=== PATIENT | female | born 1945 | race Caucasian/White ===

== ENCOUNTER → 2017-01-06 | Outpatient (CLI) | payer MEDICARE ==
[~2017-01-06] MED LIST: ACTOS15 MG PO; ASPIR 8181 MG PO; BRILINTA90 MG PO; IMDUR ER TAB 3030 MG PO; JARDIANCE10 MG PO; LIPITOR TAB 2020 MG PO; LISINOPRIL2.5 MG PO; LOPRESSOR 25 MG25 MG PO; NITROSTAT0.4 MG PO; PLAVIX 75 MG TA75 MG PO; ZANAFLEX 4 MG TA4 MG PO
== END ==
LOC: MAMO 14:00
DX: Z12.31 Encounter for screening mammogram for malignant neoplasm of breast (principal)
CPT/HCPCS: G0202

== ENCOUNTER 2017-01-14 03:29 | Inpatient (IN) | payer MEDICARE ==
[~2017-01-14] VITALS: Ht 157.5 cm; Wt 73.5 kg
[2017-01-14 03:51] LABS: HEMOGLOBIN 16.1 gm/dl (12.3-15.3); RED BLOOD COUNT 5.07 M/UL (4.00-5.10)
[2017-01-14 04:04] LABS: BUN/CREATININE RATIO 24 (0-10)
[2017-01-14] MEDS ORDERED: ZANAFLEX 4 MG TA4 MG PO (06:39)
[2017-04-21] MEDS ORDERED: NITROSTAT0.4 MG PO (05:11)
[2017-04-21] MEDS ORDERED: LIPITOR TAB 2020 MG PO (05:11)
[2017-04-21] MEDS ORDERED: ACTOS15 MG PO (05:11)
[2017-04-21] MEDS ORDERED: LOPRESSOR 25 MG25 MG PO (05:12)
[2017-04-21] MEDS ORDERED: BRILINTA90 MG PO (05:13)
[2017-04-21] MEDS ORDERED: ASPIR 8181 MG PO (05:13)
[2017-04-21] MEDS ORDERED: IMDUR ER TAB 3030 MG PO (17:45)
[2017-04-21] MEDS ORDERED: PLAVIX 75 MG TA75 MG PO (17:46)
[2017-04-21] MEDS ORDERED: LISINOPRIL2.5 MG PO (17:46)
[2017-05-03] MEDS ORDERED: BRILINTA90 MG PO (09:52)
[2017-05-03] MEDS ORDERED: JARDIANCE10 MG PO (09:53)
== END 2017-01-14 17:07 | disposition short-term general hospital (02) | DRG 246 ==
LOC: ER1 03:29 → ZEROF 03:57 → CCU 05:53
PROVIDERS: Emergency Medicine; ADMIT Internal Medicine Cardiovascular Disease
PROC: 027034Z Dilation of Coronary Artery, One Artery with Drug-eluting Intraluminal Device, Percutaneous Approach (ICD-10-PCS; principal; 2017-01-14)
PROC: 4A023N7 Measurement of Cardiac Sampling and Pressure, Left Heart, Percutaneous Approach (ICD-10-PCS; 2017-01-14)
PROC: B2111ZZ Fluoroscopy of Multiple Coronary Arteries using Low Osmolar Contrast (ICD-10-PCS; 2017-01-14)
DX: T82.867A Thrombosis due to cardiac prosthetic devices, implants and grafts, initial encounter (principal); I21.09 ST elevation (STEMI) myocardial infarction involving other coronary artery of anterior wall; Y71.2 Prosthetic and other implants, materials and accessory cardiovascular devices associated with adverse incidents; I25.10 Atherosclerotic heart disease of native coronary artery without angina pectoris; E11.9 Type 2 diabetes mellitus without complications; I10 Essential (primary) hypertension; E78.5 Hyperlipidemia, unspecified; K21.9 Gastro-esophageal reflux disease without esophagitis; Z91.19 Patient's noncompliance with other medical treatment and regimen; E66.9 Obesity, unspecified; Z68.29 Body mass index [BMI] 29.0-29.9, adult; Z85.820 Personal history of malignant melanoma of skin; Z79.899 Other long term (current) drug therapy; Z88.8 Allergy status to other drugs, medicaments and biological substances; Z90.710 Acquired absence of both cervix and uterus; Z90.49 Acquired absence of other specified parts of digestive tract; Z98.890 Other specified postprocedural states; Z80.8 Family history of malignant neoplasm of other organs or systems; Z82.49 Family history of ischemic heart disease and other diseases of the circulatory system; Z83.6 Family history of other diseases of the respiratory system; Z83.3 Family history of diabetes mellitus
CPT/HCPCS: ECHO; 36415; 71010; 80053; 82550; 82553; 82962; 83874; 84132; 84484; 85025; 85347; 93005; 93306; 96374; 96375; 99291; C1725; C1757; C1769; C1874; C1887; C9600; J0461; J0583; J1644; J2405; J3010; J3480; J7030; J7040; Q9965

== ENCOUNTER → 2020-11-29 | Outpatient (CLI) | payer MEDICARE ==
[~2020-11-29] MED LIST changes: +CEFUROXIME500 MG PO; +CLARITIN 10MG T10 MG PO; +PREDNISONE20 MG PO
== END ==
LOC: RAD 15:06
DX: M25.561 Pain in right knee (principal)
CPT/HCPCS: 73562

== ENCOUNTER 2021-09-25 23:50 | Inpatient (IN) | payer MEDICARE ==
[~2021-09-25] VITALS: Ht 154.9 cm; Wt 98.0 kg
[2021-09-26 00:42] LABS: RED BLOOD COUNT 4.35 M/UL (4.00-5.10); WHITE BLOOD COUNT 8.4 K/UL (4.5-11.0)
[2021-09-26] MEDS ORDERED: DONEPEZIL HCL5 MG PO (10:01)
[2021-09-26] MEDS ORDERED: COREG 3.125M3.125 MG PO (10:01)
[2021-09-26] MEDS ORDERED: ISOSORBIDE MONO60 MG PO (10:02)
[2021-09-26] MEDS ORDERED: VALSARTAN80 MG PO (10:02)
[2021-09-26] MEDS ORDERED: MULTIVITAMIN1 EACH PO (10:04)
[2021-09-26] MEDS ORDERED: NOVOLOG 10100 UNITS1 INJ (10:05)
[2021-09-27 08:44] LABS: HEMOGLOBIN 12.8 gm/dl (12.3-15.3); RED BLOOD COUNT 4.04 M/UL (4.00-5.10); WHITE BLOOD COUNT 6.5 K/UL (4.5-11.0)
[2021-09-27 09:14] LABS: BUN/CREATININE RATIO 44 (0-10)
[2021-09-28 06:02] LABS: ACINETOBACTER BAUMANNII Not Detected (Negative); CANDIDA ALBICANS Not Detected (Negative); CANDIDA KRUSEI Not Detected (Negative); CANDIDA TROPICALIS Not Detected (Negative); ENTEROCOCCUS Not Detected (Negative); ESCHERICHIA COLI Not Detected (Negative); HAEMOPHILUS INFLUENZAE Not Detected (Negative); KLEBSIELLA OXYTOCA Not Detected (Negative); KLEBSIELLA PNEUMONIAE Not Detected (Negative); KPC-CARBAPENEM-RESISTANCE GENE Not Detected (Negative); PROTEUS Not Detected (Negative); PSEUDOMONAS AERUGINOSA Not Detected (Negative); SERRATIA MARCESANS Not Detected (Negative); STAPHYLOCOCCUS Not Detected (Negative); STAPHYLOCOCCUS AUREUS Not Detected (Negative); STREP AGALACTIAE (GROUP B) Not Detected (Negative); STREP PYOGENES (GROUP A) Not Detected (Negative); STREPTOCOCCUS Not Detected (Negative); mecA (METHICILLIN RESIST GENE Not Detected (Negative); vanA/B (VANCOMYCIN RESIST GENE Not Detected (Negative)
[2021-09-28 09:10] LABS: HEMOGLOBIN 12.1 gm/dl (12.3-15.3); RED BLOOD COUNT 3.78 M/UL (4.00-5.10)
[2021-09-28 09:12] LABS: WHITE BLOOD COUNT 13.2 K/UL (4.5-11.0)
[2021-09-29 08:01] LABS: HEMOGLOBIN 12.4 gm/dl (12.3-15.3); RED BLOOD COUNT 3.95 M/UL (4.00-5.10)
--- NOTE | 2021-09-29 11:17 | NUR ---
ATTEMPTED TO CALL REPROT TO ICU AT THIS TIME TO MOVE PATIENT. ICU NURSE STATES THAT I WILL NEED TO CALL BACK THAT THE NURSE IS IN ANOTHER ROOM AND THAT THE PULMONOLIGIST STATED THAT THE PATIENT IS STABLE ENOUGH TO WAIT TRANSFER. [facility]RIC[facility]PRENTICE MADE AWARE.
--- NOTE | 2021-09-29 12:26 | NUR ---
REPORT CALLED TO RUBEN ROMAN IN THE ICU AT THIS TIME.
[2021-09-30 04:58] LABS: HEMOGLOBIN 11.9 gm/dl (12.3-15.3); RED BLOOD COUNT 3.76 M/UL (4.00-5.10); WHITE BLOOD COUNT 13.8 K/UL (4.5-11.0)
[2021-10-01 05:16] LABS: RED BLOOD COUNT 3.51 M/UL (4.00-5.10); WHITE BLOOD COUNT 15.5 K/UL (4.5-11.0)
[2021-10-02 04:50] LABS: HEMOGLOBIN 11.7 gm/dl (12.3-15.3); RED BLOOD COUNT 3.74 M/UL (4.00-5.10); WHITE BLOOD COUNT 18.1 K/UL (4.5-11.0)
[2021-10-03 05:04] LABS: HEMOGLOBIN 11.3 gm/dl (12.3-15.3); RED BLOOD COUNT 3.56 M/UL (4.00-5.10)
[2021-10-03 05:07] LABS: WHITE BLOOD COUNT 13.5 K/UL (4.5-11.0)
[2021-10-03 05:26] LABS: BUN/CREATININE RATIO 43 (0-10)
[2021-10-04 05:44] LABS: HEMOGLOBIN 12.1 gm/dl (12.3-15.3); RED BLOOD COUNT 3.8 M/UL (4.00-5.10)
[2021-10-04 05:46] LABS: WHITE BLOOD COUNT 8.2 K/UL (4.5-11.0)
[2021-10-05 05:31] LABS: HEMOGLOBIN 13.5 gm/dl (12.3-15.3)
[2021-10-05 05:32] LABS: RED BLOOD COUNT 4.28 M/UL (4.00-5.10); WHITE BLOOD COUNT 14.2 K/UL (4.5-11.0)
[2021-10-05 05:50] LABS: BUN/CREATININE RATIO 48 (0-10)
--- NOTE | 2021-10-05 21:48 | NUR ---
ABD X-RAY DONE TO CONFIRM DOPHOFF PLACEMENT.
--- NOTE | 2021-10-06 05:57 | NUR ---
DOPHOFF PLACEMENT WAS CONFIRMED BY X-RAY. DR CALL OK'D TO PROCEED WITH TUBE FEEDING ORDERED.
[2021-10-06 11:05] LABS: HEMOGLOBIN 12.3 gm/dl (12.3-15.3); RED BLOOD COUNT 3.91 M/UL (4.00-5.10)
[2021-10-06 11:26] LABS: WHITE BLOOD COUNT 18.1 K/UL (4.5-11.0)
[2021-10-06 12:08] LABS: HEMOGLOBIN 11.6 gm/dl (12.3-15.3); RED BLOOD COUNT 3.66 M/UL (4.00-5.10); WHITE BLOOD COUNT 17.7 K/UL (4.5-11.0)
[2021-10-07 05:41] LABS: HEMOGLOBIN 10.5 gm/dl (12.3-15.3); RED BLOOD COUNT 3.41 M/UL (4.00-5.10); WHITE BLOOD COUNT 13.4 K/UL (4.5-11.0)
[2021-10-07 06:03] LABS: BUN/CREATININE RATIO 55 (0-10)
--- NOTE | 2021-10-08 02:02 | NUR ---
PT WAKING AND PULLING AT DOBHOFF, TITRATED PRECEDEX, PATIENT NOW RESTING
[2021-10-08 05:10] LABS: RED BLOOD COUNT 3.43 M/UL (4.00-5.10); WHITE BLOOD COUNT 15.8 K/UL (4.5-11.0)
[2021-10-08 05:33] LABS: BUN/CREATININE RATIO 61 (0-10)
[2021-10-09 09:50] LABS: HEMOGLOBIN 10.9 gm/dl (12.3-15.3); RED BLOOD COUNT 3.46 M/UL (4.00-5.10); WHITE BLOOD COUNT 12.1 K/UL (4.5-11.0)
[2021-10-09 10:18] LABS: BUN/CREATININE RATIO 57 (0-10)
[2021-10-10 04:23] LABS: HEMOGLOBIN 10.7 gm/dl (12.3-15.3); RED BLOOD COUNT 3.4 M/UL (4.00-5.10); WHITE BLOOD COUNT 13.7 K/UL (4.5-11.0)
[2021-10-10 04:35] LABS: BUN/CREATININE RATIO 72 (0-10)
[2021-10-11 04:35] LABS: HEMOGLOBIN 9.6 gm/dl (12.3-15.3); RED BLOOD COUNT 3.07 M/UL (4.00-5.10); WHITE BLOOD COUNT 15.4 K/UL (4.5-11.0)
[2021-10-11 04:53] LABS: BUN/CREATININE RATIO 73 (0-10)
--- NOTE | 2021-10-12 00:13 | NUR ---
10/11/218: CALLED DR. MORENO TO INFORM OF ABG RESULTS, ADVISED TO CALL ER TO GET A DOC TO INTUBATE PT. 2209: CALLED ER TO REQUEST DOC FOR INTUBATION 2215: ER DOC TO THE ICU FLOOR 2220: ETOM 10MG AND 50MG MARY GIVEN 2221: PT INTUBATED WITHOUT COMPLICATIONS 7.5 TUBE, 22 @ THE LIP VENT SETTINGS: TV 450, FIO2-100%, 24R, 10 PEEP PT STARTED ON SEDATION MEDICATION PER MD ORDER, SEE MAR
--- NOTE | 2021-10-12 00:26 | NUR ---
08/11/221: CALLED PT FAMILY TO GIVE UPDATE ON PT CONDITION AND INFORM THAT PT NEEDED TO BE INTUBATED PER MD, FAMILY UNDERSTOOD
[2021-10-12 05:17] LABS: HEMOGLOBIN 9.7 gm/dl (12.3-15.3); RED BLOOD COUNT 3.09 M/UL (4.00-5.10)
[2021-10-12 05:22] LABS: WHITE BLOOD COUNT 26.5 K/UL (4.5-11.0)
[2021-10-12 05:47] LABS: BUN/CREATININE RATIO 60 (0-10)
[2021-10-13 05:49] LABS: HEMOGLOBIN 7.8 gm/dl (12.3-15.3); WHITE BLOOD COUNT 22.8 K/UL (4.5-11.0)
[2021-10-13 05:59] LABS: RED BLOOD COUNT 2.54 M/UL (4.00-5.10)
[2021-10-14 05:53] LABS: HEMOGLOBIN 8.6 gm/dl (12.3-15.3); RED BLOOD COUNT 2.72 M/UL (4.00-5.10); WHITE BLOOD COUNT 23.2 K/UL (4.5-11.0)
--- NOTE | 2021-10-14 06:00 | NUR ---
0600 MD CALL AWARE OF CRITICAL PLT.
[2021-10-15 00:02] LABS: HEMOGLOBIN 8.1 gm/dl (12.3-15.3); RED BLOOD COUNT 2.55 M/UL (4.00-5.10); WHITE BLOOD COUNT 25.8 K/UL (4.5-11.0)
--- NOTE | 2021-10-15 00:50 | NUR ---
2300 PT NOTED TO HAVE RHYTHM CHANGE ON MONITOR. JAKUB NOTIFIED AND AWARE. EKG ORDERED. 2315 REPEAT EKG ORDERED BY DR CALL. LABS ORDERED. 235 JAKUB NOTIFIED AND AWARE OF CRITICAL POTASSIUM. SEE MAR FOR MEDICATIONS GIVEN. JAKUB REPORTS HE HAS DISCUSSED THE CASE WITH CARDIOLOGY AND PIT CRANE OPERATOR WILL STOP BY AND SEE THE PT. ORDERS TO REPEAT POTASSIUM LEVEL IN 2 HRS AFTER MEDS GIVEN. 0009 JAKUB NOTIFIED AND AWARE OF CRITICAL PLT, [facility], AND TROP.
[2021-10-15 02:28] LABS: HEMOGLOBIN 7.9 gm/dl (12.3-15.3); RED BLOOD COUNT 2.51 M/UL (4.00-5.10); WHITE BLOOD COUNT 24.1 K/UL (4.5-11.0)
[2021-10-15 08:34] LABS: HEMOGLOBIN 7.5 gm/dl (12.3-15.3); RED BLOOD COUNT 2.37 M/UL (4.00-5.10)
== END 2021-10-15 12:48 | disposition expired | DRG 871 ==
LOC: ER1 23:50 → CDU 09-26 06:01 → MED SURG 4 09-26 06:01 → CCU 09-26 06:01 → MED SURG 4 09-26 07:23 → CCU 09-29 15:21
PROVIDERS: Family Medicine; Internal Medicine; Internal Medicine Critical Care Medicine; Internal Medicine Infectious Disease; Physician Assistant; ADMIT Internal Medicine
PROC: XW033E5 Introduction of Remdesivir Anti-infective into Peripheral Vein, Percutaneous Approach, New Technology Group 5 (ICD-10-PCS; principal; 2021-09-26)
PROC: 3E0333Z Introduction of Anti-inflammatory into Peripheral Vein, Percutaneous Approach (ICD-10-PCS; 2021-09-26)
PROC: 5A09557 Assistance with Respiratory Ventilation, Greater than 96 Consecutive Hours, Continuous Positive Airway Pressure (ICD-10-PCS; 2021-09-26)
PROC: 8E0ZXY6 Isolation (ICD-10-PCS; 2021-09-26)
PROC: 0BH17EZ Insertion of Endotracheal Airway into Trachea, Via Natural or Artificial Opening (ICD-10-PCS; 2021-10-11)
PROC: 5A1945Z Respiratory Ventilation, 24-96 Consecutive Hours (ICD-10-PCS; 2021-10-11)
PROC: 3E043XZ Introduction of Vasopressor into Central Vein, Percutaneous Approach (ICD-10-PCS; 2021-10-12)
PROC: 02HV33Z Insertion of Infusion Device into Superior Vena Cava, Percutaneous Approach (ICD-10-PCS; 2021-10-12)
PROC: B548ZZA Ultrasonography of Superior Vena Cava, Guidance (ICD-10-PCS; 2021-10-12)
DX: A41.89 Other specified sepsis (principal); G93.41 Metabolic encephalopathy; J12.82 Pneumonia due to coronavirus disease 2019; R65.21 Severe sepsis with septic shock; J80 Acute respiratory distress syndrome; U07.1 COVID-19; J15.9 Unspecified bacterial pneumonia; K72.00 Acute and subacute hepatic failure without coma; N17.0 Acute kidney failure with tubular necrosis; I21.19 ST elevation (STEMI) myocardial infarction involving other coronary artery of inferior wall; I21.4 Non-ST elevation (NSTEMI) myocardial infarction; E87.2 Acidosis; N30.00 Acute cystitis without hematuria; E87.3 Alkalosis; E87.1 Hypo-osmolality and hyponatremia; Z99.11 Dependence on respirator [ventilator] status; I50.9 Heart failure, unspecified; Z51.5 Encounter for palliative care; R34 Anuria and oliguria; Z66 Do not resuscitate; I49.9 Cardiac arrhythmia, unspecified; L89.152 Pressure ulcer of sacral region, stage 2; R40.2434 Glasgow coma scale score 3-8, 24 hours or more after hospital admission; L89.816 Pressure-induced deep tissue damage of head; L89.322 Pressure ulcer of left buttock, stage 2; D69.6 Thrombocytopenia, unspecified; E87.5 Hyperkalemia; E11.65 Type 2 diabetes mellitus with hyperglycemia; E80.6 Other disorders of bilirubin metabolism; F03.90 Unspecified dementia, unspecified severity, without behavioral disturbance, psychotic disturbance, mood disturbance, and anxiety; D53.9 Nutritional anemia, unspecified; I25.10 Atherosclerotic heart disease of native coronary artery without angina pectoris; T38.0X5A Adverse effect of glucocorticoids and synthetic analogues, initial encounter; N18.9 Chronic kidney disease, unspecified; E11.22 Type 2 diabetes mellitus with diabetic chronic kidney disease; E86.0 Dehydration; B96.20 Unspecified Escherichia coli [E. coli] as the cause of diseases classified elsewhere; Z96.659 Presence of unspecified artificial knee joint; Z88.8 Allergy status to other drugs, medicaments and biological substances; Z79.4 Long term (current) use of insulin; Z95.5 Presence of coronary angioplasty implant and graft; Z79.82 Long term (current) use of aspirin; Z79.899 Other long term (current) drug therapy; I12.9 Hypertensive chronic kidney disease with stage 1 through stage 4 chronic kidney disease, or unspecified chronic kidney disease
CPT/HCPCS: ECHO; 31500; 36415; 36600; 70450; 71045; 74018; 80048; 80053; 80202; 81001; 82550; 82553; 82803; 82962; 83036; 83540; 83550; 83605; 83690; 83735; 83880; 84100; 84132; 84484; 85025; 85027; 85384; 85610; 85652; 85730; 86140; 87040; 87070; 87077; 87081; 87086; 87150; 87186; 87205; 93005; 93306; 94002; 94003; 94640; 94660; 94664; 94760; 96374; 99285; A6212; C1751; C9113; J0248; J0360; J0610; J0690; J0692; J0696; J1100; J1120; J1630; J1644; J1650; J1940; J2060; J2185; J2248; J2370; J2704; J2765; J3370; J3486; J7030; J7040; J7042; J7070; J7120; P9047; U0002